=== PATIENT | male | born 1985 | race Caucasian/White ===

== ENCOUNTER 2017-04-19 14:07 | Inpatient (IN) | payer OTHER ==
[~2017-04-19] VITALS: Ht 195.6 cm; Wt 78.9 kg
[~2017-04-19 14:07] MED LIST: NO HOME MEDS
[2017-04-19 14:57] LABS: HEMATOCRIT 47.9 % (38.0-50.0); HEMOGLOBIN 16.5 G/DL (12.5-16.6); MCH 30.4 PG (29.0-34.0); MCHC 34.4 G/DL (30.0-36.0); MCV 88.2 FL (86-99); PLATELET COUNT 211 K/uL (156-360); RBC DIS.WIDTH-CV 12.1 % (11.8-14.6); RBC DIS.WIDTH-SD 39.5 % (39-53); RED BLOOD COUNT 5.43 M/uL (4.00-5.50); WHITE BLOOD COUNT 7.3 K/uL (4.1-10.2)
[2017-04-19 15:08] LABS: CHLORIDE 106 mEq/L (99-109); POTASSIUM 4.2 mEq/L (3.7-5.4); SODIUM 142 mEq/L (136-147)
[2017-04-19 15:09] LABS: AMPHETAMINE NEGATIVE (500 ng/mL); BARBITURATES NEGATIVE (200 ng/mL); BENZODIAZEPINES NEGATIVE (150 ng/mL); BUPRENORPHINE NEGATIVE (10 ng/mL); COCAINE NEGATIVE (150 ng/mL); METHADONE NEGATIVE (200 ng/mL); METHAMPHETAMINE NEGATIVE (500 ng/mL); OPIATES (MORPHINE) NEGATIVE (100 ng/mL); OXYCODONE NEGATIVE (100 ng/mL); PHENCYCLIDINE NEGATIVE (25 ng/mL); PROPOXYPHENE NEGATIVE (300 ng/mL); THC CANNABINOIDS PRESUMPTIVE POSITIVE (50 ng/mL); TRICYCLIC ANTIDEPRESSANTS NEGATIVE (300 ng/mL)
[2017-04-19 15:10] LABS: GLUCOSE 99 mg/dL (70-99)
[2017-04-19 15:13] LABS: SERUM ETHYL ALCOHOL < 10 mg/dL
[2017-04-19 15:14] LABS: CREATININE 0.8 mg/dL (0.6-1.3); GFR ESTIMATE (CALCULATED) > 59 mL/min/ (58.99-99999)
[2017-04-19 15:15] LABS: UREA NITROGEN (BUN) 7 mg/dL (9-23)
[2017-04-19 19:38] VITALS: BP 139/84
[2017-04-19 19:40] VITALS: BP 139/84
[2017-04-19] MEDS ORDERED: MOTRIN400 MG PO (20:45)
[2017-04-19] MEDS ORDERED: TRUVADA1 TABLET PO (20:45)
[2017-04-20 07:46] VITALS: BP 114/63
[2017-04-20 15:50] VITALS: BP 141/90
[2017-04-21 07:32] VITALS: BP 133/78
[2017-04-21] MEDS ORDERED: MIRTAZAPINE30 MG PO (15:01)
[2017-04-21 15:35] VITALS: BP 130/78
== END 2017-04-21 16:08 | disposition home or self-care (01) | DRG 885 ==
LOC: EME 14:07 → 1WEST 18:11 → EDOF 18:11 → ENRESERV 18:42 → 1WEST 19:32
DX: F31.9 Bipolar disorder, unspecified (principal); R45.851 Suicidal ideations; F17.200 Nicotine dependence, unspecified, uncomplicated; F10.10 Alcohol abuse, uncomplicated; F12.10 Cannabis abuse, uncomplicated; Z91.5 Personal history of self-harm; Z81.8 Family history of other mental and behavioral disorders; F41.9 Anxiety disorder, unspecified; Z20.6 Contact with and (suspected) exposure to human immunodeficiency virus [HIV]
CPT/HCPCS: 80048; 84999; 85027; 90839; 97150 GO; 97165 GO; 99281; 99285; G0480; Q0177